=== PATIENT | female | born 1975 | race Caucasian/White ===

== ENCOUNTER 2017-05-11 05:37 | Emergency (ER) | payer MEDICAID ==
[~2017-05-11] VITALS: Ht 167.6 cm; Wt 63.1 kg
[~2017-05-11 05:37] MED LIST: AMOX1TAB64 PO; HYDR-757
[2017-05-11 05:46] VITALS: BP 122/75
== END 2017-05-11 06:26 | disposition home or self-care (01) ==
LOC: ED 06:21
DX: K08.89 Other specified disorders of teeth and supporting structures (principal); G43.909 Migraine, unspecified, not intractable, without status migrainosus
CPT/HCPCS: 99283

== ENCOUNTER 2017-06-03 18:07 | Emergency (ER) | payer MEDICAID ==
[~2017-06-03] VITALS: Ht 165.1 cm; Wt 68.6 kg
[2017-06-03] MEDS ORDERED: KETOROLAC 30 MG/1 ML ONE (18:51)
[2017-06-03 19:08] VITALS: BP 117/58
[2017-06-03] MEDS ORDERED: KETOROLAC 30 MG/1 ML IM ONE (19:30)
== END 2017-06-03 19:29 | disposition home or self-care (01) ==
LOC: ED 18:40
DX: S93.492A Sprain of other ligament of left ankle, initial encounter (principal); X58.XXXA Exposure to other specified factors, initial encounter; Y93.01 Activity, walking, marching and hiking; Y99.8 Other external cause status; Y92.89 Other specified places as the place of occurrence of the external cause
CPT/HCPCS: 73610; 96372; 99284; J1885

== ENCOUNTER 2017-06-28 10:50 | Emergency (ER) | payer MEDICAID ==
[~2017-06-28] VITALS: Ht 165.1 cm; Wt 61.8 kg
[2017-06-28 10:58] VITALS: BP 110/76
[2017-06-28] MEDS ORDERED: OXYcodone/APAP 5/325MG TABLET PO ONE (11:30)
[2017-06-28] MEDS ORDERED: OXYcodone/APAP 5/325MG TABLET ONE (11:38)
== END 2017-06-28 11:43 | disposition home or self-care (01) ==
LOC: ED 11:30
DX: K02.9 Dental caries, unspecified (principal); F17.210 Nicotine dependence, cigarettes, uncomplicated
CPT/HCPCS: 99283

== ENCOUNTER 2017-10-15 19:28 | Emergency (ER) | payer MEDICAID ==
[~2017-10-15] VITALS: Ht 165.1 cm; Wt 62.8 kg
[2017-10-15 19:59] VITALS: BP 118/76
[2017-10-15 20:15] LABS: HEMATOCRIT 39.4 % (34.6-47.8); WHITE BLOOD COUNT 8.2 x10^3/uL (3.4-10)
[2017-10-15] MEDS ORDERED: KETOROLAC 30 MG/1 ML ONE (20:23)
[2017-10-15 20:27] LABS: BLOOD UREA NITROGEN 19 mg/dL (7-18)
[2017-10-15] MEDS ORDERED: KETOROLAC 30 MG/1 ML IM ONE (20:30)
[2017-10-15 20:33] LABS: ASPARTATE AMINO TRANSFERASE 18 U/L (15-37)
== END 2017-10-15 20:50 | disposition home or self-care (01) ==
LOC: ED 20:00
DX: R10.9 Unspecified abdominal pain (principal); Z90.49 Acquired absence of other specified parts of digestive tract; F12.10 Cannabis abuse, uncomplicated
CPT/HCPCS: 36415; 76770; 80053; 81003; 83690; 84703; 85025; 96372; 99285; J1885

== ENCOUNTER 2018-02-26 12:03 | Emergency (ER) | payer MEDICAID ==
[~2018-02-26] VITALS: Ht 167.6 cm; Wt 59.7 kg
[2018-02-26 12:17] VITALS: BP 129/85
[2018-02-26] MEDS ORDERED: OXYcodone/APAP 10/325MG TABLET ONE (12:52)
[2018-02-26] MEDS ORDERED: OXYcodone/APAP 10/325MG TABLET PO ONE (13:00)
[2018-02-26] MEDS ORDERED: NEO/POLY/HC EAR SUSP 10ML LEFT EAR STA (13:56)
== END 2018-02-26 14:46 | disposition home or self-care (01) ==
LOC: ED 14:35
DX: H60.592 Other noninfective acute otitis externa, left ear (principal); H60.12 Cellulitis of left external ear; G43.909 Migraine, unspecified, not intractable, without status migrainosus; Z90.49 Acquired absence of other specified parts of digestive tract
CPT/HCPCS: 99283

== ENCOUNTER 2018-03-08 15:56 | Emergency (ER) | payer MEDICAID ==
[~2018-03-08] VITALS: Ht 167.6 cm; Wt 61.0 kg
[2018-03-08 15:58] VITALS: BP 139/91
[2018-03-08] MEDS ORDERED: HYDROcodone/APAP 5/325 TABLET PO ONE (16:30)
[2018-03-08] MEDS ORDERED: IBUPROFEN 200 MG TABLET PO ONE (16:30)
[2018-03-08] MEDS ORDERED: IBUPROFEN 200 MG TABLET ONE (16:34)
[2018-03-08] MEDS ORDERED: HYDROcodone/APAP 5/325 TABLET ONE (16:34)
== END 2018-03-08 17:07 | disposition home or self-care (01) ==
LOC: ED 17:00
DX: S20.212A Contusion of left front wall of thorax, initial encounter (principal); G43.909 Migraine, unspecified, not intractable, without status migrainosus; F17.200 Nicotine dependence, unspecified, uncomplicated; X58.XXXA Exposure to other specified factors, initial encounter; Y93.83 Activity, rough housing and horseplay; Y99.8 Other external cause status; Y92.009 Unspecified place in unspecified non-institutional (private) residence as the place of occurrence of the external cause
CPT/HCPCS: 71046; 99284

== ENCOUNTER 2019-05-29 22:30 | Emergency (ER) | payer MEDICAID ==
[~2019-05-29] VITALS: Ht 165.1 cm; Wt 58.6 kg
[2019-05-29 22:32] VITALS: BP 117/73
[2019-05-29] MEDS ORDERED: IBUPROFEN 200 MG TABLET ONE (22:57)
[2019-05-29] MEDS ORDERED: CEPHALEXIN 500 MG CAPSULE ONE (22:57)
[2019-05-29] MEDS ORDERED: IBUPROFEN 200 MG TABLET PO ONE (23:00)
[2019-05-29] MEDS ORDERED: CEPHALEXIN 500 MG CAPSULE PO ONE (23:00)
== END 2019-05-29 23:05 | disposition home or self-care (01) ==
LOC: ED 22:54
DX: L03.211 Cellulitis of face (principal); F17.200 Nicotine dependence, unspecified, uncomplicated; Z88.2 Allergy status to sulfonamides
CPT/HCPCS: 99283

== ENCOUNTER 2019-10-10 10:22 | Emergency (ER) | payer MEDICAID ==
[~2019-10-10] VITALS: Ht 165.1 cm; Wt 60.0 kg
[2019-10-10 10:47] VITALS: BP 87/51
[2019-10-10] MEDS ORDERED: HYDROcodone/APAP 5/325 TABLET ONE (11:27)
[2019-10-10] MEDS ORDERED: HYDROcodone/APAP 5/325 TABLET PO ONE (11:30)
== END 2019-10-10 11:48 | disposition home or self-care (01) ==
LOC: ED 11:40
DX: R21 Rash and other nonspecific skin eruption (principal); F17.200 Nicotine dependence, unspecified, uncomplicated
CPT/HCPCS: 99283

== ENCOUNTER 2020-01-21 20:27 | Emergency (ER) | payer MEDICAID ==
[~2020-01-21] VITALS: Ht 165.1 cm; Wt 68.2 kg
--- NOTE | 2020-01-21 20:35 | NUR ---
PT BIB [facility] FROM [facility] ON SIDE OF ROAD. PT HERE WITH C/O ABDOMINAL PAIN, RIGHT LOWER QUADRANT. PT AAO X 4, NAD, ROOM AIR. PT DRESSED IN GOWN AND ON FULL MONITOR. SIDERAIL X [address], CALL LIGHT WITHIN REACH. PER EMS, UNABLE TO START PIV SO PT RECEIVED 18MG IM KETAMINE FOR PAIN CONTROL. PT STATES HX ENDOMETRIOSIS AND STATES LMP 01/20/2020. PT STATES UNKNOWN BUT DOES STATE SHE IS BLEED HEAVIER THAN NORMAL.
--- NOTE | 2020-01-21 20:54 | NUR ---
REPORT FROM JAVIER GAGNON TO ASSUME CARE OF PT. AT THIS TIME.
--- NOTE | 2020-01-21 21:04 | NUR ---
REPORT GIVEN TO JAVIER ORTIZ. CARE TRANSFERRED.
--- NOTE | 2020-01-21 21:12 | NUR ---
MED STUDENT AT BS TO EVAL PT. AND DISCUSS POC. VS UPDATED. ALL SAFETY MEASURES OBSERVED. ALL MONITORS IN PLACE.
[2020-01-21] MEDS ORDERED: KETOROLAC 30 MG/1 ML IVPush ONE (21:30)
[2020-01-21] MEDS ORDERED: HYDROcodone/APAP 5/325 TABLET PO ONE (21:30)
[2020-01-21] MEDS ORDERED: ONDANSETRON 2MG/ML, 2ML IVPush ONE (21:30)
[2020-01-21] MEDS ORDERED: SODIUM CHLORIDE FLUSH 10ML SYR IVF ONE (21:30)
--- NOTE | 2020-01-21 21:34 | NUR ---
PT. AMBULATORY TO BR WITH STEADY GAIT AT THIS TIME. URINE CUP AND CLEAN CATCH UA INSTRUCTIONS GIVEN.
[2020-01-21] MEDS ORDERED: ONDANSETRON 2MG/ML, 2ML ONE (21:47)
[2020-01-21] MEDS ORDERED: KETOROLAC 30 MG/1 ML ONE (21:47)
[2020-01-21] MEDS ORDERED: HYDROcodone/APAP 5/325 TABLET ONE (21:48)
[2020-01-21 22:43] LABS: BASOPHILS # (AUTO) 0.04 x10^3/uL (0-0.1); BASOPHILS % (AUTO) 1 % (0-1); EOSINOPHILS # (AUTO) 0.12 x10^3/uL (0-0.4); EOSINOPHILS % (AUTO) 2 % (1-7); LYMPHOCYTES % (AUTO) 30 % (22-44); MD NO; MEAN CORPUSCULAR HGB CONC 32.7 g/dL (32.4-35.8); MEAN CORPUSCULAR VOLUME 88.7 fL (80-100); MEAN PLATELET VOLUME 6.9 fL (7.4-10.4); MONOCYTES # (AUTO) 0.49 x10^3/uL (0.2-0.8); MONOCYTES % (AUTO) 7 % (2-9); NEUTROPHILS % (AUTO) 61 % (42-75); PLATELET COUNT 315 x10^3/uL (130-400); RED CELL DISTRIBUTION WIDTH 14.1 % (9.6-15.2)
[2020-01-21 22:47] LABS: ALANINE AMINOTRANSFERASE 54 U/L (12-78); ALBUMIN 3.4 g/dL (3.4-5.0); ANION GAP 5 mmol/L (5-15); CHLORIDE 107 mmol/L (98-107); CREATININE 0.71 mg/dL (0.55-1.02)
[2020-01-21 22:49] LABS: MICROSCOPIC AUTO
[2020-01-21 22:51] LABS: ALKALINE PHOSPHATASE 90 U/L (45-117); BILIRUBIN,TOTAL 0.4 mg/dL (0.2-1.0); TOTAL PROTEIN 7.1 g/dL (6.4-8.2)
[2020-01-21 22:52] LABS: CULTURE INDICATED? YES
--- NOTE | 2020-01-21 23:05 | NUR ---
PT. OUT OF ROOM FOR IMAGING.
--- NOTE | 2020-01-22 00:20 | NUR ---
PT. CONTINUALLY REQUESTING "ICE CREAM BECAUSE I AM STARVING". PT. MADE AWARE MANY TIMES THAT WE DON'T HAVE ANY ICE CREAM. VS UPDATED. CHART UP FOR RECHECK BY ERP.
[2020-01-22] MEDS ORDERED: CIPROFLOXACIN 500 MG TABLET PO ONE (01:00)
[2020-01-22] MEDS ORDERED: CIPROFLOXACIN 500 MG TABLET ONE (01:12)
[2020-01-22 01:18] VITALS: BP 104/48
== END 2020-01-22 01:20 | disposition home or self-care (01) ==
LOC: ED 01-22 01:00
DX: N30.01 Acute cystitis with hematuria (principal); R10.31 Right lower quadrant pain; F17.210 Nicotine dependence, cigarettes, uncomplicated; G43.909 Migraine, unspecified, not intractable, without status migrainosus; Z90.49 Acquired absence of other specified parts of digestive tract
CPT/HCPCS: 36415; 74176; 76856; 80053; 81001; 83605; 84703; 85025; 87077; 87086; 87186; 96374; 96375; 99285; 99406; J1885; J2405

== ENCOUNTER 2020-03-14 15:42 | Emergency (ER) | payer MEDICAID ==
[~2020-03-14] VITALS: Ht 165.1 cm; Wt 56.9 kg
--- NOTE | 2020-03-14 16:35 | NUR ---
PT TO ROOM FROM LOBBY AT THIS TIME.
[2020-03-14] MEDS ORDERED: CEFTRIAXONE 1,000 MG IM ONE (17:30)
[2020-03-14] MEDS ORDERED: AZITHROMYCIN 500 MG TABLET PO ONE (17:30)
[2020-03-14 17:46] LABS: CLUE CELLS PRESENT (NONE SEEN); WET PREP WBCS MANY (FEW)
[2020-03-14] MEDS ORDERED: CEFTRIAXONE 250 MG ONE (18:01)
[2020-03-14] MEDS ORDERED: LIDOCAINE-MPF 1%, 2ML ONE (18:01)
[2020-03-14] MEDS ORDERED: AZITHROMYCIN 500 MG TABLET ONE (18:01)
[2020-03-14 18:04] LABS: CULTURE INDICATED? YES; MICROSCOPIC INDICATED
[2020-03-14] MEDS ORDERED: metroNIDAZOLE 500 MG TABLET ONE (18:38)
--- NOTE | 2020-03-14 18:59 | NUR ---
REPORT RECEIVED FROM JAVIER GAN. PLAN OF CARE DISCUSSED
[2020-03-14] MEDS ORDERED: metroNIDAZOLE 500 MG TABLET PO ONE (19:00)
[2020-03-14 19:01] VITALS: BP 116/74
== END 2020-03-14 19:03 | disposition home or self-care (01) ==
LOC: ED 18:14
DX: A59.09 Other urogenital trichomoniasis (principal); A54.03 Gonococcal cervicitis, unspecified; A59.01 Trichomonal vulvovaginitis; R10.2 Pelvic and perineal pain; N98.9 Complication associated with artificial fertilization, unspecified
CPT/HCPCS: 81001; 87086; 87210; 87491; 87591; 87808; 96372; 99283; J0696